=== PATIENT | female | born 1955 | race Caucasian/White ===

== ENCOUNTER 2018-12-23 16:22 | Emergency (ER) | payer OTHER, SELFPAY ==
[2018-12-23 16:27] VITALS: BP 144/84; PULSE 86; RESP 18; TEMP 36.9; O2SAT 97
--- NOTE | 2018-12-23 16:33 | DI.CT.S_ITS ---
PROCEDURE: CT HEAD/BRAIN WO CON INDICATIONS: fall TECHNIQUE: Noncontrast 4.5 mm thick angled axial sections acquired from the foramen magnum to the vertex, with coronal and sagittal reformats. For radiation dose reduction, the following was used: automated exposure control, adjustment of mA and/or kV according to patient size. COMPARISON: None. FINDINGS: Image quality: Excellent. CSF spaces: Basal cisterns are patent. No extra-axial fluid collections. Ventricles are normal in size and shape. Brain: No midline shift. No intracranial masses or hemorrhage. Shell-white matter interface is normal. Skull and face: Calvarium appears intact, without suspicious lesions or acute fracture. Mildly comminuted bilateral nasal bone fractures with overlying soft tissue edema. Small soft tissue laceration overlying the left zygomatic arch. Sinuses: Visualized sinuses and mastoids are clear. IMPRESSION: CT head without acute intracranial abnormalities. Mildly comminuted bilateral nasal bone fractures. No skull fractures. Dictated by: Compa Yarbrough M.D. on 12/23/2018 at 17:52 Approved by: Compa Yarbrough M.D. on 12/23/2018 at 17:53
--- NOTE | 2018-12-23 16:33 | DI.CT.S_ITS ---
PROCEDURE: CT CERVICAL SPINE WO CON INDICATIONS: fall TECHNIQUE: Noncontrast 3 mm thick sections acquired from the skull base to the T4 level. Sagittal and coronal reformats were then constructed. For radiation dose reduction, the following was used: automated exposure control, adjustment of mA and/or kV according to patient size. COMPARISON: None. FINDINGS: Image quality: Excellent. Bones: No fractures or dislocations. Multilevel cervical spondylosis. Visualized superior ribs are intact. Soft tissues: Prevertebral soft tissues are normal in thickness. No paravertebral hematomas. No apical pneumothoraces. IMPRESSION: Cervical spine without acute fracture or malalignment. Dictated by: Compa Yarbrough M.D. on 12/23/2018 at 17:57 Approved by: Compa Yarbrough M.D. on 12/23/2018 at 17:58
--- NOTE | 2018-12-23 16:33 | DI.CT.S_ITS ---
PROCEDURE: CT FACIAL BONES WO CON INDICATIONS: glf TECHNIQUE: Noncontrast 2.5 mm thick axial images acquired from the mandible through the frontal sinuses, with coronal and sagittal reformatting. For radiation dose reduction, the following was used: automated exposure control, adjustment of mA and/or kV according to patient size. COMPARISON: None. FINDINGS: Image quality: Excellent. Bones and teeth: Orbital tubbs are intact. Sinus tubbs show no fracture or deformity. Nasal septum intact. Mildly comminuted bilateral nasal bone fractures. There is overlying soft tissue edema. Visualized portions of the mandible demonstrate no fractures or subluxation. Zygomatic arches are intact. Pterygoid plates are intact. Visualized portions of the skull base and auditory canals are intact. Degenerative changes of the temporomandibular joints. Sinuses: Minimal right maxillary sinus mucosal thickening. Layering fluid in the sphenoid sinus. Remaining paranasal sinuses are aerated, without fluid levels, mucosal thickening, or mucoceles. Mastoid air cells are aerated. Soft tissues: Soft tissue swelling and laceration over the left zygomatic arch. Soft tissue swelling overlying nasal bone fractures. No enlarged lymph nodes. No soft tissue lacerations or debris. Vascular: Visualized vascular structures appear normal in the absence of contrast. Bony vascular foramina and canals are intact. IMPRESSION: Mildly comminuted bilateral nasal bone fractures. Dictated by: Compa Yarbrough M.D. on 12/23/2018 at 17:53 Approved by: Compa Yarbrough M.D. on 12/23/2018 at 17:56
--- NOTE | 2018-12-23 16:36 | DI.RAD.S_ITS ---
PROCEDURE: XR PELVIS 1-2V INDICATIONS: fall TECHNIQUE: Single view(s) of the pelvis acquired. COMPARISON: None. FINDINGS: Bones: No fractures or dislocations. No suspicious bony lesions. Soft tissues: Visualized bowel gas pattern is normal. No suspicious soft tissue calcifications. IMPRESSION: No acute fracture identified in this limited single view of the pelvis. If there are persistent clinical concern for pelvic or hip fracture, recommended dedicated radiographic series for further evaluation. Dictated by: Compa Yarbrough M.D. on 12/23/2018 at 19:25 Approved by: Compa Yarbrough M.D. on 12/23/2018 at 19:26
--- NOTE | 2018-12-23 16:37 | DI.RAD.S_ITS ---
PROCEDURE: XR CHEST 1V INDICATIONS: fall TECHNIQUE: One view of the chest was acquired. COMPARISON: None. FINDINGS: Surgical changes and devices: None. Lungs and pleura: Lungs are clear. No pleural effusions or pneumothorax. Mediastinum: Mediastinal contours appear normal. Heart size is normal. Bones and chest wall: No suspicious bony lesions. Overlying soft tissues appear unremarkable. IMPRESSION: No acute disease. Dictated by: Compa Yarbrough M.D. on 12/23/2018 at 19:24 Approved by: Compa Yarbrough M.D. on 12/23/2018 at 19:25
--- NOTE | 2018-12-23 17:05 | PC.NURSE ---
pt reports, lost balance and fell, occured approx 345pm.
--- NOTE | 2018-12-23 17:52 | PC.NURSE ---
facial ,nasal injuries, reports, back of neck pain, left chest pain. denies loc, denies nausea or vomiting at this time, denies visual changes, reports, front upper tooth edge is rough, but tooth all intact. no tounge injuries. denies etoh.
--- NOTE | 2018-12-23 17:54 | PC.NURSE ---
4x4 applied along with ice pack in place.
[2018-12-23 18:13] VITALS: BP 129/70; PULSE 79; RESP 16; O2SAT 97
--- NOTE | 2018-12-23 18:29 | PC.NURSE ---
pt ambulate to bathroom to void, denies dizziness.
[2018-12-23] MEDS: CYCLOBENZAPRINE 10 MG PREPACK 1 BOTTLE MISC (20:10)
[2018-12-23] MEDS: HYDROCODONE/ACET 5/325 PREPACK 1 BOTTLE MISC (20:10)
--- NOTE | 2018-12-23 20:14 | ED.HEATRA ---
HPI - Head Injury General Chief complaint: Head Injury Stated complaint: fall,hit face, mulitple wounds Time Seen by Provider: 12/23/18 18:00 Source: patient and family Mode of arrival: ambulatory Limitations: no limitations History of Present Illness HPI Narrative: 63-year-old female nonsmoker presents with her with a chief complaint of a mechanical fall with head and face injuries. She denies loss of consciousness and has had no nausea, vomiting or diarrhea. She does not take any blood thinners and denies use of alcohol. Patient was activated as a modified trauma given the mechanism and potential severity of injury. Patient was placed in a C-spine immobilization immediately upon being taken into the room. She is awake, alert and oriented and complains of pain in the left side of her face as well as her nose. she states that she was walking on the stairs in her backyard when she misjudged a step and in doing so stumbled forward and fell face 1st into some rocks. MD Complaint: head injury and head pain Onset (ago): minute(s) Mechanism of Injury: fall Place: home Loss of Consciousness: no Location of injury: frontal Severity: moderate Quality: stabbing and aching Radiation: none Other Injuries: laceration Associated symptoms: denies other symptoms Related Data Home Medications Medication Instructions Recorded Confirmed CA PANTOTHENATE/FOLIC ACID/VIT 1 tab PO QDAY #0 01/17/13 (MULTIVITAMIN) Calcium Carbonate/Vitamin D 1 tab PO BID #0 01/17/13 (#YOLANDA-D) Fish Oil 1,000 mg PO QDAY #0 01/17/13 Glucosamine Sulfate (GLUCOSAMINE-) 750 mg PO BID #0 01/17/13 Previous Rx's Medication Instructions Recorded estradiol-norethindrone acet 1 tab PO Q DAY #90 tab 11/21/18 [Activella] Allergies Allergy/AdvReac Type Severity Reaction Status Date / Time ibuprofen Allergy Unknown Unverified 11/29/17 12:17 [From DAYQUIL SINUS PRESSURE/PAIN] penicillin V [PENICILLIN V] Allergy Unknown Unverified 11/29/17 12:17 pseudoephedrine Allergy Unknown Unverified 11/29/17 12:17 [From DAYQUIL SINUS PRESSURE/PAIN] Review of Systems Constitutional Denies chills, Denies fever(s), Reports headache(s), Denies lethargy and Denies weakness Eyes Denies change in vision, Denies eye discharge, Denies irritation and Denies loss of vision ENT Ears, Nose, Mouth, and Throat: Denies change in voice, Reports facial pain, Reports headache(s), Reports nasal congestion, Denies neck pain and Denies sore throat Cardiovascular Denies chest pain, Denies irregular heart rhythm, Denies lightheadedness, Denies palpitations, Denies dyspnea, Denies dyspnea on exertion and Denies orthopnea Respiratory Denies cough, Denies dyspnea, Denies dyspnea on exertion and Denies wheezing Gastrointestinal Gastrointestinal: Denies abdominal pain, Denies change in bowel habits, Denies diarrhea, Denies nausea and Denies vomiting Genitourinary Denies hematuria, Denies flank pain, Denies urinary incontinence and Denies urinary urgency Musculoskeletal Denies neck pain Integumentary/Breasts Denies pruritus, Denies erythema, Denies rash and Reports wounds Neurologic Denies confusion, Reports headache(s), Denies loss of vision and Denies weakness Psychiatric Denies anxiety, Denies confusion, Denies depression, Denies homicidal ideation and Denies suicidal ideation Endocrine Denies palpitations Hematologic/Lymphatic Denies easy bruising Allergic/Immunologic Denies wheezing PFSH Surgical History Status post tonsillectomy and adenoidectomy Social History Smoking Status: Never smoker Social History Smoking Status: Never smoker Exam Narrative Exam Narrative: GENERAL: A 63-year-old female appears younger than stated age, obviously uncomfortable in C-spine. GCS is 15, alert and oriented x3 HEAD: 2 cm laceration mid forehead, deep with minimal bleeding, very small laceration on the bridge of nose bleeding. Large complex deep, gaping wound over left zygoma with minimal tissue loss and dirty wound. Minimal bleeding. EYES: Pupils equal round and reactive. Extraocular motions intact. No scleral icterus. No injection or drainage. ENT: Nose without bleeding, purulent drainage or septal hematoma. Patient cannot breathe through left knee air and there is apparently a new septal deviation causing this. She has tenderness, swelling and deformity of the bridge of her nose. small laceration on the bridge of the nose, 1/4 cm Throat without erythema, tonsillar hypertrophy or exudate. Uvula midline. Airway patent. NECK: Trachea midline. No JVD or lymphadenopathy. Supple, nontender, no meningeal signs. CARDIOVASCULAR: Regular rate and rhythm without murmurs, gallops, or rubs. RESPIRATORY: Clear to auscultation. Breath sounds equal bilaterally. No wheezes, rales, or rhonchi. GASTROINTESTINAL: Abdomen soft, non-tender, nondistended. No hepato-splenomegaly, or palpable masses. No guarding. EXTREMITIES: No clubbing, cyanosis, or edema. No joint tenderness, effusion, or edema noted. BACK: Nontender without deformity or crepitance. No flank tenderness. NEURO: AOx3. SKIN: No rash or erythema. Initial Vital Signs Initial Vital Signs: Vital Signs Temperature 98.4 F 12/23/18 16:27 Pulse Rate 86 12/23/18 16:27 Respiratory Rate 18 12/23/18 16:27 Blood Pressure 144/84 H 12/23/18 16:27 Pulse Oximetry 97 12/23/18 16:27 Const General: cooperative and well developed Nutritional Appearance: well nourished Orientation: alert, awake, oriented x3 and not confused [facility] Head: normocephalic and atraumatic Ears: external ears normal and TM's normal bilaterally Nose: external nose normal and No nasal discharge Face and sinus: sinuses nontender, face symmetric, no sinus tenderness and No dry mucous membranes Mouth: oral mucosae normal and moist mucous membranes Teeth and gingiva: dentition normal Throat: tonsils normal and uvula midline Eyes General: appearance normal, both eyes and all related structures Eyelids: eyelids normal Conjunctivae: conjunctivae normal Sclera: sclerae normal Pupils: PERRL EOM: EOM intact bilaterally Neck Neck: normal visual inspection, trachea midline, No lymphadenopathy, No midline deformity and No JVD Lymphatic: No lymphedema Chest Chest: normal inspection of the chest Resp Effort & Inspection: normal respiratory effort, able to speak in complete sentences, no respiratory distress and no use of accessory muscles Auscultation: clear to auscultation bilaterally, no rales, no rhonchi and no wheezes Cardio Rate: regular rate Rhythm: regular rhythm Heart Sounds: no click, no gallops, no murmurs and no rubs Pulses: normal peripheral pulses GI Inspection: non-distended Palpation: soft, no hepatosplenomegaly, No guarding, No pulsatile mass and No tender Auscultation: normal bowel sounds Back/Spine/Pelvis Back: No CVA tenderness Cervical Spine: cervical ROM normal and No pain with cervical ROM Thoracic/Lumbar Spine: thoracic and lumbar spine normal to inspection Skin General: no rashes or lesions noted, No jaundice and No petechiae Neuro General: alert, oriented x3, gait normal and no focal motor deficits Speech: speech normal Extrem General: full ROM, no clubbing, cyanosis or edema, no pedal edema and no calf tenderness Psych Appearance: well kempt Mental Status: mental status grossly normal Attitude: cooperative Thought Content: normal and suicidality Judgment: judgment good Procedures Laceration Repair Laceration 1: Site: face Size (cm): 0.25 Description: linear Depth: simple, single layer Local Anesthetic: lidocaine 1% and with bicarb Amount of anesthesia used (mL): 2 Pre-repair: wound explored Skin layer closed with: nylon Size (cm): 6-0 Number of sutures: 1 Technique: simple, interrupted Course Orders Ordered: ED Orders 12/23/18 16:33 CT cervical spine wo con Stat CT facial bones wo con Stat CT head/brain wo con Stat 12/23/18 16:36 XR pelvis 1-2V Stat 12/23/18 16:37 XR chest 1V Stat Discontinued Medications Hydrocodone Bitart/Acetaminophen (Vicodin Prepack) 1 bottle MISC SEEINSTR ONE Stop: 12/23/18 19:56 Last Admin: 12/23/18 20:10 Dose: 1 bottle Cyclobenzaprine HCl (Flexeril 10 Mg Prepack) 1 bottle MISC SEEINSTR ONE Stop: 12/23/18 19:56 Last Admin: 12/23/18 20:10 Dose: 1 bottle Consultations Consultation #1: Early call to ear nose and throat given inability to breathe through left knee air as well as complexity of left-sided facial laceration. Dr. Silva was extremely helpful in gave detailed instructions regarding wound care including careful cleaning, use of Betadine with overlying 4x4s and sterile saline and a Kerlix wrap. He requests we do not repair the wounds and send the patient to the ENT office early tomorrow morning where they can evaluate the nasal injury as well as to perform facial repairs. Vital Signs - 8 hr 12/23/18 16:27 12/23/18 18:13 Temperature 98.4 F Pulse Rate 86 79 Respiratory Rate 18 16 Blood Pressure 144/84 H Blood Pressure [Left Arm] 129/70 Pulse Oximetry 97 97 MDM - Head Injury Lab Data Urine Dip Bedside Urine Glucose Negative Bedside Urine Bilirubin - Negative Bedside Urine Ketone +/- 5 Urine Specific [place] 1.015 Bedside Urine Occult Blood - Negative Bedside Urine pH 7.0 Bedside Urine Protein - Negative Bedside Urine Urobilinogen - Negative Bedside Urine Nitrite - Negative Bedside Urine Leukocytes - Negative Esterase Imaging Data CT scan - head: Radiologist's impression: [address] [address] [address] Scan Report Signed Patient: Suzan Serrano [facility]#: [id number] : 1955cct:[id number] Age/Sex: 63 / FDate of Service: 12/23/18 Loc: ED Accession Number: [id number] Procedure: CT head/brain wo con Ordering Provider: Digna Goodwin- PROCEDURE: CT HEAD/BRAIN WO CON INDICATIONS: fall TECHNIQUE: Noncontrast 4.5 mm thick angled axial sections acquired from the foramen magnum to the vertex, with coronal and sagittal reformats. For radiation dose reduction, the following was used: automated exposure control, adjustment of mA and/or kV according to patient size. COMPARISON: None. FINDINGS: Image quality: Excellent. CSF spaces: Basal cisterns are patent. No extra-axial fluid collections. Ventricles are normal in size and shape. Brain: No midline shift. No intracranial masses or hemorrhage. Shell-white matter interface is normal. Skull and face: Calvarium appears intact, without suspicious lesions or acute fracture. Mildly comminuted bilateral nasal bone fractures with overlying soft tissue edema. Small soft tissue laceration overlying the left zygomatic arch. Sinuses: Visualized sinuses and mastoids are clear. IMPRESSION: CT head without acute intracranial abnormalities. Mildly comminuted bilateral nasal bone fractures. No skull fractures. Dictated by: Compa Yarbrough M.D. on 12/23/2018 at 17:52 Approved by: Compa Yarbrough M.D. on 12/23/2018 at 17:[address]: Radiologist's impression: [address] [address] [address] Scan Report Signed Patient: Suzan Serrano [facility]#: [id number] : 6Acct:[id number] Age/Sex: 63 / FDate of Service: 12/23/18 Loc: ED Accession Number: [id number] Procedure: CT facial bones wo con Ordering Provider: Digna Goodwin PROCEDURE: CT FACIAL BONES WO CON INDICATIONS: glf TECHNIQUE: Noncontrast 2.5 mm thick axial images acquired from the mandible through the frontal sinuses, with coronal and sagittal reformatting. For radiation dose reduction, the following was used: automated exposure control, adjustment of mA and/or kV according to patient size. COMPARISON: None. FINDINGS: Image quality: Excellent. Bones and teeth: Orbital tubbs are intact. Sinus tubbs show no fracture or deformity. Nasal septum intact. Mildly comminuted bilateral nasal bone fractures. There is overlying soft tissue edema. Visualized portions of the mandible demonstrate no fractures or subluxation. Zygomatic arches are intact. Pterygoid plates are intact. Visualized portions of the skull base and auditory canals are intact. Degenerative changes of the temporomandibular joints. Sinuses: Minimal right maxillary sinus mucosal thickening. Layering fluid in the sphenoid sinus. Remaining paranasal sinuses are aerated, without fluid levels, mucosal thickening, or mucoceles. Mastoid air cells are aerated. Soft tissues: Soft tissue swelling and laceration over the left zygomatic arch. Soft tissue swelling overlying nasal bone fractures. No enlarged lymph nodes. No soft tissue lacerations or debris. Vascular: Visualized vascular structures appear normal in the absence of contrast. Bony vascular foramina and canals are intact. IMPRESSION: Mildly comminuted bilateral nasal bone fractures. Dictated by: Compa Yarbrough M.D. on 12/23/2018 at 17:53 CT Cspine: Radiologist's impression: [place] [address] CT Scan Report Signed Patient: Suzan Serrano [facility]#: [id number] : 6Acct:[id number] Age/Sex: 63 / FDate of Service: 12/23/18 Loc: ED Accession Number: [id number] Procedure: CT cervical spine wo con Ordering Provider: Digna Goodwin PROCEDURE: CT CERVICAL SPINE WO CON INDICATIONS: fall TECHNIQUE: Noncontrast 3 mm thick sections acquired from the skull base to the T4 level. Sagittal and coronal reformats were then constructed. For radiation dose reduction, the following was used: automated exposure control, adjustment of mA and/or kV according to patient size. COMPARISON: None. FINDINGS: Image quality: Excellent. Bones: No fractures or dislocations. Multilevel cervical spondylosis. Visualized superior ribs are intact. Soft tissues: Prevertebral soft tissues are normal in thickness. No paravertebral hematomas. No apical pneumothoraces. IMPRESSION: Cervical spine without acute fracture or malalignment. Dictated by: Compa Yarbrough M.D. on 12/23/2018 at 17:57 Approved by: Compa Yarbrough M.D. on 12/23/2018 at 17:58 Chest x-ray: Radiologist's impression: [place] [address] XRay Report Signed Patient: Suzan Serrano [facility]#: [id number] : [id number]:[id number] Age/Sex: 63 / FDate of Service: 12/23/18 Loc: ED Accession Number: [id number] Procedure: XR chest 1V Ordering Provider: Digna Goodwin PROCEDURE: XR CHEST 1V INDICATIONS: fall TECHNIQUE: One view of the chest was acquired. COMPARISON: None. FINDINGS: Surgical changes and devices: None. Lungs and pleura: Lungs are clear. No pleural effusions or pneumothorax. Mediastinum: Mediastinal contours appear normal. Heart size is normal. Bones and chest wall: No suspicious bony lesions. Overlying soft tissues appear unremarkable. IMPRESSION: No acute disease. Dictated by: Compa Yarbrough M.D. on 12/23/2018 at 19:24 Approved by: Compa Yarbrough M.D. on 12/23/2018 at 19:25 Abdominal x-ray: Radiologist's impression: [address] [address] XRay Report Signed Patient: Suzan Serrano [facility]#: [id number] : [id number]:[id number] Age/Sex: 63 / FDate of Service: 12/23/18 Loc: ED Accession Number: [id number] Procedure: XR pelvis 1-2V Ordering Provider: Dinwiddie,Digna FLUME MAKER-BC PROCEDURE: XR PELVIS 1-2V INDICATIONS: fall TECHNIQUE: Single view(s) of the pelvis acquired. COMPARISON: None. FINDINGS: Bones: No fractures or dislocations. No suspicious bony lesions. Soft tissues: Visualized bowel gas pattern is normal. No suspicious soft tissue calcifications. IMPRESSION: No acute fracture identified in this limited single view of the pelvis. If there are persistent clinical concern for pelvic or hip fracture, recommended dedicated radiographic series for further evaluation. Dictated by: Compa Yarbrough M.D. on 12/23/2018 at 19:25 Approved by: Compa Yarbrough M.D. on 12/23/2018 at 19:26 [facility] Narrative Medical decision making narrative: A 63-year-old female with mechanical fall extensive facial lacerations and nasal bone fracture. Newly unable to breathe through left knee air as result of a traumatic septal deviation, no hematoma noted. Additionally complex left facial laceration is best served to be repaired by ENT. They will see her tomorrow morning. Extensive return precautions given to patient and . They understand the plan and are in full agreement as is verbalized by their understanding. ENT requested wound be cleaned, prepped but left unrepaired so they may complete the job tomorrow. I did put 1 small stitch in the bridge of the nose because it continued to trickle bleed. Discharge Plan Departure Patient Disposition: Home Clinical Impression: Closed head injury Qualifiers: Encounter type: initial encounter Qualified Code(s): S09.90XA - Unspecified injury of head, initial encounter Facial laceration Qualifiers: Encounter type: initial encounter Qualified Code(s): S01.81XA - Laceration without foreign body of other part of head, initial encounter Closed fracture nasal bone Qualifiers: Encounter type: initial encounter Qualified Code(s): S02.2XXA - Fracture of nasal bones, initial encounter for closed fracture Discharge Date/Time: 12/23/18 20:23 Instructions: DI for Laceration Repair, DI for Closed Head Injury Activity Restrictions/Additional Instructions: Please leave the dressing in place unless it becomes wet or soiled in which case you should return to the emergency department Please proceed to the [facility] tomorrow for your appointment at 11. I have been speaking with Dr. Bradford Silva but Dr. brink is in the office and you will see either one, they are expecting you. The office is a half block north [facility] Emergency at [facility] [address] [place] [address] in [place] Please return to the emergency department for any worsening or persistent symptoms Prescriptions: No Action Fish Oil 1,000 mg PO QDAY Qty: 0 RF: 0 CA PANTOTHENATE/FOLIC ACID/VIT (MULTIVITAMIN) 1 tab PO QDAY Qty: 0 RF: 0 Calcium Carbonate/Vitamin D (#YOLANDA-D) 1 tab PO BID Qty: 0 RF: 0 Glucosamine Sulfate (GLUCOSAMINE-) 750 mg PO BID Qty: 0 RF: 0 estradiol-norethindrone acet [Activella] 1-0.5 mg tablet 1 tab PO Q DAY Qty: 90 RF: 3 Referrals: Bradford Silva MD [Physician] -
[2018-12-23 20:20] VITALS: BP 122/72; PULSE 77; RESP 14; O2SAT 99
--- NOTE | 2018-12-23 20:23 | ED_ITS ---
HPI - Head Injury General Chief complaint: Head Injury Stated complaint: fall,hit face, mulitple wounds Time Seen by Provider: 12/23/18 18:00 Source: patient and family Mode of arrival: ambulatory Limitations: no limitations History of Present Illness HPI Narrative: 63-year-old female nonsmoker presents with her with a chief complaint of a mechanical fall with head and face injuries. She denies loss of consciousness and has had no nausea, vomiting or diarrhea. She does not take any blood thinners and denies use of alcohol. Patient was activated as a modified trauma given the mechanism and potential severity of injury. Patient was placed in a C-spine immobilization immediately upon being taken into the room. She is awake, alert and oriented and complains of pain in the left side of her face as well as her nose. she states that she was walking on the stairs in her backyard when she misjudged a step and in doing so stumbled forward and fell face 1st into some rocks. MD Complaint: head injury and head pain Onset (ago): minute(s) Mechanism of Injury: fall Place: home Loss of Consciousness: no Location of injury: frontal Severity: moderate Quality: stabbing and aching Radiation: none Other Injuries: laceration Associated symptoms: denies other symptoms Related Data Home Medications Medication Instructions Recorded Confirmed CA PANTOTHENATE/FOLIC ACID/VIT 1 tab PO QDAY #0 01/17/13 (MULTIVITAMIN) Calcium Carbonate/Vitamin D 1 tab PO BID #0 01/17/13 (#YOLANDA-D) Fish Oil 1,000 mg PO QDAY #0 01/17/13 Glucosamine Sulfate (GLUCOSAMINE-) 750 mg PO BID #0 01/17/13 Previous Rx's Medication Instructions Recorded estradiol-norethindrone acet 1 tab PO Q DAY #90 tab 11/21/18 [Activella] Allergies Allergy/AdvReac Type Severity Reaction Status Date / Time ibuprofen Allergy Unknown Unverified 11/29/17 12:17 [From DAYQUIL SINUS PRESSURE/PAIN] penicillin V [PENICILLIN V] Allergy Unknown Unverified 11/29/17 12:17 pseudoephedrine Allergy Unknown Unverified 11/29/17 12:17 [From DAYQUIL SINUS PRESSURE/PAIN] Review of Systems Constitutional Denies chills, Denies fever(s), Reports headache(s), Denies lethargy and Denies weakness Eyes Denies change in vision, Denies eye discharge, Denies irritation and Denies loss of vision ENT Ears, Nose, Mouth, and Throat: Denies change in voice, Reports facial pain, Reports headache(s), Reports nasal congestion, Denies neck pain and Denies sore throat Cardiovascular Denies chest pain, Denies irregular heart rhythm, Denies lightheadedness, Denies palpitations, Denies dyspnea, Denies dyspnea on exertion and Denies orthopnea Respiratory Denies cough, Denies dyspnea, Denies dyspnea on exertion and Denies wheezing Gastrointestinal Gastrointestinal: Denies abdominal pain, Denies change in bowel habits, Denies diarrhea, Denies nausea and Denies vomiting Genitourinary Denies hematuria, Denies flank pain, Denies urinary incontinence and Denies urinary urgency Musculoskeletal Denies neck pain Integumentary/Breasts Denies pruritus, Denies erythema, Denies rash and Reports wounds Neurologic Denies confusion, Reports headache(s), Denies loss of vision and Denies weakness Psychiatric Denies anxiety, Denies confusion, Denies depression, Denies homicidal ideation and Denies suicidal ideation Endocrine Denies palpitations Hematologic/Lymphatic Denies easy bruising Allergic/Immunologic Denies wheezing PFSH Surgical History Status post tonsillectomy and adenoidectomy Social History Smoking Status: Never smoker Social History Smoking Status: Never smoker Exam Narrative Exam Narrative: GENERAL: A 63-year-old female appears younger than stated age, obviously uncomfortable in C-spine. GCS is 15, alert and oriented x3 HEAD: 2 cm laceration mid forehead, deep with minimal bleeding, very small laceration on the bridge of nose bleeding. Large complex deep, gaping wound over left zygoma with minimal tissue loss and dirty wound. Minimal bleeding. EYES: Pupils equal round and reactive. Extraocular motions intact. No scleral icterus. No injection or drainage. ENT: Nose without bleeding, purulent drainage or septal hematoma. Patient cannot breathe through left knee air and there is apparently a new septal deviation causing this. She has tenderness, swelling and deformity of the bridge of her nose. small laceration on the bridge of the nose, 1/4 cm Throat without erythema, tonsillar hypertrophy or exudate. Uvula midline. Airway patent. NECK: Trachea midline. No JVD or lymphadenopathy. Supple, nontender, no meningeal signs. CARDIOVASCULAR: Regular rate and rhythm without murmurs, gallops, or rubs. RESPIRATORY: Clear to auscultation. Breath sounds equal bilaterally. No wheezes, rales, or rhonchi. GASTROINTESTINAL: Abdomen soft, non-tender, nondistended. No hepato- splenomegaly, or palpable masses. No guarding. EXTREMITIES: No clubbing, cyanosis, or edema. No joint tenderness, effusion, or edema noted. BACK: Nontender without deformity or crepitance. No flank tenderness. NEURO: AOx3. SKIN: No rash or erythema. Initial Vital Signs Initial Vital Signs: Vital Signs Temperature 98.4 F 12/23/18 16:27 Pulse Rate 86 12/23/18 16:27 Respiratory Rate 18 12/23/18 16:27 Blood Pressure 144/84 H 12/23/18 16:27 Pulse Oximetry 97 12/23/18 16:27 Const General: cooperative and well developed Nutritional Appearance: well nourished Orientation: alert, awake, oriented x3 and not confused [facility] Head: normocephalic and atraumatic Ears: external ears normal and TM's normal bilaterally Nose: external nose normal and No nasal discharge Face and sinus: sinuses nontender, face symmetric, no sinus tenderness and No dry mucous membranes Mouth: oral mucosae normal and moist mucous membranes Teeth and gingiva: dentition normal Throat: tonsils normal and uvula midline Eyes General: appearance normal, both eyes and all related structures Eyelids: eyelids normal Conjunctivae: conjunctivae normal Sclera: sclerae normal Pupils: PERRL EOM: EOM intact bilaterally Neck Neck: normal visual inspection, trachea midline, No lymphadenopathy, No midline deformity and No JVD Lymphatic: No lymphedema Chest Chest: normal inspection of the chest Resp Effort & Inspection: normal respiratory effort, able to speak in complete sentences, no respiratory distress and no use of accessory muscles Auscultation: clear to auscultation bilaterally, no rales, no rhonchi and no wheezes Cardio Rate: regular rate Rhythm: regular rhythm Heart Sounds: no click, no gallops, no murmurs and no rubs Pulses: normal peripheral pulses GI Inspection: non-distended Palpation: soft, no hepatosplenomegaly, No guarding, No pulsatile mass and No tender Auscultation: normal bowel sounds Back/Spine/Pelvis Back: No CVA tenderness Cervical Spine: cervical ROM normal and No pain with cervical ROM Thoracic/Lumbar Spine: thoracic and lumbar spine normal to inspection Skin General: no rashes or lesions noted, No jaundice and No petechiae Neuro General: alert, oriented x3, gait normal and no focal motor deficits Speech: speech normal Extrem General: full ROM, no clubbing, cyanosis or edema, no pedal edema and no calf tenderness Psych Appearance: well kempt Mental Status: mental status grossly normal Attitude: cooperative Thought Content: normal and suicidality Judgment: judgment good Procedures Laceration Repair Laceration 1: Site: face Size (cm): 0.25 Description: linear Depth: simple, single layer Local Anesthetic: lidocaine 1% and with bicarb Amount of anesthesia used (mL): 2 Pre-repair: wound explored Skin layer closed with: nylon Size (cm): 6-0 Number of sutures: 1 Technique: simple, interrupted Course Orders Ordered: ED Orders 12/23/18 16:33 CT cervical spine wo con Stat CT facial bones wo con Stat CT head/brain wo con Stat 12/23/18 16:36 XR pelvis 1-2V Stat 12/23/18 16:37 XR chest 1V Stat Discontinued Medications Hydrocodone Bitart/Acetaminophen (Vicodin Prepack) 1 bottle MISC SEEINSTR ONE Stop: 12/23/18 19:56 Last Admin: 12/23/18 20:10 Dose: 1 bottle Cyclobenzaprine HCl (Flexeril 10 Mg Prepack) 1 bottle MISC SEEINSTR ONE Stop: 12/23/18 19:56 Last Admin: 12/23/18 20:10 Dose: 1 bottle Consultations Consultation #1: Early call to ear nose and throat given inability to breathe through left knee air as well as complexity of left-sided facial laceration. Dr. Silva was extremely helpful in gave detailed instructions regarding wound care including careful cleaning, use of Betadine with overlying 4x4s and sterile saline and a Kerlix wrap. He requests we do not repair the wounds and send the patient to the ENT office early tomorrow morning where they can evaluate the nasal injury as well as to perform facial repairs. Vital Signs - 8 hr 12/23/18 16:27 12/23/18 18:13 Temperature 98.4 F Pulse Rate 86 79 Respiratory Rate 18 16 Blood Pressure 144/84 H Blood Pressure [Left Arm] 129/70 Pulse Oximetry 97 97 MDM - Head Injury Lab Data Urine Dip Bedside Urine Glucose Negative Bedside Urine Bilirubin - Negative Bedside Urine Ketone +/- 5 Urine Specific [place] 1.015 Bedside Urine Occult Blood - Negative Bedside Urine pH 7.0 Bedside Urine Protein - Negative Bedside Urine Urobilinogen - Negative Bedside Urine Nitrite - Negative Bedside Urine Leukocytes - Negative Esterase Imaging Data CT scan - head: Radiologist's impression: [address] [address] [address] Scan Report Signed Patient: Suzan Serrano [facility]#: [id number] : 1955cct:[id number] Age/Sex: 63 / FDate of Service: 12/23/18 Loc: ED Accession Number: [id number] Procedure: CT head/brain wo con Ordering Provider: Digna Goodwin- PROCEDURE: CT HEAD/BRAIN WO CON INDICATIONS: fall TECHNIQUE: Noncontrast 4.5 mm thick angled axial sections acquired from the foramen magnum to the vertex, with coronal and sagittal reformats. For radiation dose reduction, the following was used: automated exposure control, adjustment of mA and/or kV according to patient size. COMPARISON: None. FINDINGS: Image quality: Excellent. CSF spaces: Basal cisterns are patent. No extra-axial fluid collections. Ventricles are normal in size and shape. Brain: No midline shift. No intracranial masses or hemorrhage. Shell-white matter interface is normal. Skull and face: Calvarium appears intact, without suspicious lesions or acute fracture. Mildly comminuted bilateral nasal bone fractures with overlying soft tissue edema. Small soft tissue laceration overlying the left zygomatic arch. Sinuses: Visualized sinuses and mastoids are clear. IMPRESSION: CT head without acute intracranial abnormalities. Mildly comminuted bilateral nasal bone fractures. No skull fractures. Dictated by: Compa Yarbrough M.D. on 12/23/2018 at 17:52 Approved by: Compa Yarbrough M.D. on 12/23/2018 at 17:[address]: Radiologist's impression: [address] [address] [address] Scan Report Signed Patient: Suzan Serrano [facility]#: [id number] : 6Acct:[id number] Age/Sex: 63 / FDate of Service: 12/23/18 Loc: ED Accession Number: [id number] Procedure: CT facial bones wo con Ordering Provider: Digna Goodwin PROCEDURE: CT FACIAL BONES WO CON INDICATIONS: glf TECHNIQUE: Noncontrast 2.5 mm thick axial images acquired from the mandible through the frontal sinuses, with coronal and sagittal reformatting. For radiation dose reduction, the following was used: automated exposure control, adjustment of mA and/or kV according to patient size. COMPARISON: None. FINDINGS: Image quality: Excellent. Bones and teeth: Orbital tubbs are intact. Sinus tubbs show no fracture or deformity. Nasal septum intact. Mildly comminuted bilateral nasal bone fractures. There is overlying soft tissue edema. Visualized portions of the mandible demonstrate no fractures or subluxation. Zygomatic arches are intact. Pterygoid plates are intact. Visualized portions of the skull base and auditory canals are intact. Degenerative changes of the temporomandibular joints. Sinuses: Minimal right maxillary sinus mucosal thickening. Layering fluid in the sphenoid sinus. Remaining paranasal sinuses are aerated, without fluid levels, mucosal thickening, or mucoceles. Mastoid air cells are aerated. Soft tissues: Soft tissue swelling and laceration over the left zygomatic arch. Soft tissue swelling overlying nasal bone fractures. No enlarged lymph nodes. No soft tissue lacerations or debris. Vascular: Visualized vascular structures appear normal in the absence of contrast. Bony vascular foramina and canals are intact. IMPRESSION: Mildly comminuted bilateral nasal bone fractures. Dictated by: Compa Yarbrough M.D. on 12/23/2018 at 17:53 CT Cspine: Radiologist's impression: [place] [address] CT Scan Report Signed Patient: Suzan Serrano [facility]#: [id number] : 6Acct:[id number] Age/Sex: 63 / FDate of Service: 12/23/18 Loc: ED Accession Number: [id number] Procedure: CT cervical spine wo con Ordering Provider: Digna Goodwin PROCEDURE: CT CERVICAL SPINE WO CON INDICATIONS: fall TECHNIQUE: Noncontrast 3 mm thick sections acquired from the skull base to the T4 level. Sagittal and coronal reformats were then constructed. For radiation dose reduction, the following was used: automated exposure control, adjustment of mA and/or kV according to patient size. COMPARISON: None. FINDINGS: Image quality: Excellent. Bones: No fractures or dislocations. Multilevel cervical spondylosis. Visualized superior ribs are intact. Soft tissues: Prevertebral soft tissues are normal in thickness. No paravertebral hematomas. No apical pneumothoraces. IMPRESSION: Cervical spine without acute fracture or malalignment. Dictated by: Compa Yarbrough M.D. on 12/23/2018 at 17:57 Approved by: Compa Yarbrough M.D. on 12/23/2018 at 17:58 Chest x-ray: Radiologist's impression: [place] [address] XRay Report Signed Patient: Suzan Serrano [facility]#: [id number] : [id number]:[id number] Age/Sex: 63 / FDate of Service: 12/23/18 Loc: ED Accession Number: [id number] Procedure: XR chest 1V Ordering Provider: Digna Goodwin PROCEDURE: XR CHEST 1V INDICATIONS: fall TECHNIQUE: One view of the chest was acquired. COMPARISON: None. FINDINGS: Surgical changes and devices: None. Lungs and pleura: Lungs are clear. No pleural effusions or pneumothorax. Mediastinum: Mediastinal contours appear normal. Heart size is normal. Bones and chest wall: No suspicious bony lesions. Overlying soft tissues appear unremarkable. IMPRESSION: No acute disease. Dictated by: Compa Yarbrough M.D. on 12/23/2018 at 19:24 Approved by: Compa Yarbrough M.D. on 12/23/2018 at 19:25 Abdominal x-ray: Radiologist's impression: [address] [address] XRay Report Signed Patient: Suzan Serrano [facility]#: [id number] : [id number]:[id number] Age/Sex: 63 / FDate of Service: 12/23/18 Loc: ED Accession Number: [id number] Procedure: XR pelvis 1-2V Ordering Provider: Christa,Digna [employer] PROCEDURE: XR PELVIS 1-2V INDICATIONS: fall TECHNIQUE: Single view(s) of the pelvis acquired. COMPARISON: None. FINDINGS: Bones: No fractures or dislocations. No suspicious bony lesions. Soft tissues: Visualized bowel gas pattern is normal. No suspicious soft tissue calcifications. IMPRESSION: No acute fracture identified in this limited single view of the pelvis. If there are persistent clinical concern for pelvic or hip fracture, recommended dedicated radiographic series for further evaluation. Dictated by: Compa Yarbrough M.D. on 12/23/2018 at 19:25 Approved by: Compa Yarbrough M.D. on 12/23/2018 at 19:26 [facility] Narrative Medical decision making narrative: A 63-year-old female with mechanical fall extensive facial lacerations and nasal bone fracture. Newly unable to breathe through left knee air as result of a traumatic septal deviation, no hematoma noted. Additionally complex left facial laceration is best served to be repaired by ENT. They will see her tomorrow morning. Extensive return precautions given to patient and . They understand the plan and are in full agreement as is verbalized by their understanding. ENT requested wound be cleaned, prepped but left unrepaired so they may complete the job tomorrow. I did put 1 small stitch in the bridge of the nose because it continued to trickle bleed. Discharge Plan Departure Patient Disposition: Home Clinical Impression: Closed head injury Qualifiers: Encounter type: initial encounter Qualified Code(s): S09.90XA - Unspecified injury of head, initial encounter Facial laceration Qualifiers: Encounter type: initial encounter Qualified Code(s): S01.81XA - Laceration without foreign body of other part of head, initial encounter Closed fracture nasal bone Qualifiers: Encounter type: initial encounter Qualified Code(s): S02.2XXA - Fracture of nasal bones, initial encounter for closed fracture Discharge Date/Time: 12/23/18 20:23 Instructions: DI for Laceration Repair, DI for Closed Head Injury Activity Restrictions/Additional Instructions: Please leave the dressing in place unless it becomes wet or soiled in which case you should return to the emergency department Please proceed to the [facility] ENT tomorrow for your appointment at 11. I have been speaking with Dr. Bradford Silva but Dr. brink is in the office and you will see either one, they are expecting you. The office is a half block north [facility] at [facility] [address] [place] [address] in [place] Please return to the emergency department for any worsening or persistent symptoms Prescriptions: No Action Fish Oil 1,000 mg PO QDAY Qty: 0 RF: 0 CA PANTOTHENATE/FOLIC ACID/VIT (MULTIVITAMIN) 1 tab PO QDAY Qty: 0 RF: 0 Calcium Carbonate/Vitamin D (#YOLANDA-D) 1 tab PO BID Qty: 0 RF: 0 Glucosamine Sulfate (GLUCOSAMINE-) 750 mg PO BID Qty: 0 RF: 0 estradiol-norethindrone acet [Activella] 1-0.5 mg tablet 1 tab PO Q DAY Qty: 90 RF: 3 Referrals: Bradford Silva MD [Physician] -
== END 2018-12-23 20:23 | disposition home or self-care (01) ==
PROVIDERS: Emergency Provider Emergency Medicine
DX: S09.90XA Unspecified injury of head, initial encounter (principal); S01.81XA Laceration without foreign body of other part of head, initial encounter; S02.2XXA Fracture of nasal bones, initial encounter for closed fracture; W19.XXXA Unspecified fall, initial encounter
CPT/HCPCS: 12011; 70450; 70486; 71045; 72125; 72170; 81003; 99283; 99284

== ENCOUNTER → 2019-06-21 12:11 | Outpatient (CLI) | payer OTHER, SELFPAY ==
--- NOTE | 2019-06-21 | DI.MG.S_ITS ---
BILATERAL DIGITAL SCREENING MAMMOGRAM 3D/2D WITH CAD: 06/21/2019 CLINICAL: Routine screening. Comparison is made to exams dated: 01/10/2017 mammogram, 07/30/2015 mammogram, 07/26/2012 mammogram, and 06/20/2011 mammogram - [facility]. The tissue of both breasts is extremely dense, which lowers the sensitivity of mammography. Current study was also evaluated with a Computer Aided Detection (CAD) system. There is an oval asymmetry in the right breast posterior depth medial region seen on the craniocaudal view only. No other significant masses, calcifications, or other findings are seen in either breast. IMPRESSION: INCOMPLETE: NEEDS ADDITIONAL IMAGING EVALUATION The oval asymmetry in the right breast is indeterminate. Additional views with possible ultrasound are recommended. This exam was interpreted at Station ID: [id number]. NOTE: For mammograms, a report in lay terms will be sent to the patient. Approximately 15% of breast malignancies will not be visualized mammographically. In the management of a palpable breast mass, a negative mammogram must not discourage biopsy of a clinically suspicious lesion. Electronically Signed By: Mina Sofia M.D. ecl/:06/23/2019 21:27:08 copy to: Jose Leyva letter sent: Additional Imaging Needed ACR BI-RADS Category 0: Incomplete [id number]
== END ==
PROVIDERS: PCP Internal Medicine; Visit Provider Internal Medicine
DX: Z12.31 Encounter for screening mammogram for malignant neoplasm of breast (principal)
CPT/HCPCS: 77063; 77067

== ENCOUNTER → 2019-07-15 08:42 | Outpatient (CLI) | payer OTHER, SELFPAY ==
--- NOTE | 2019-07-15 | DI.US.S_ITS ---
LIMITED ULTRASOUND OF RIGHT BREAST: 07/15/2019 CLINICAL: Patient returns today to evaluate an architectural distortion in the right breast. Comparison is made to exams dated: 07/15/2019 mammogram, 06/21/2019 mammogram, 01/10/2017 mammogram, and 07/30/2015 mammogram - [facility]. Real-time ultrasound of the right breast 2 o'clock region was performed. Shell scale images of the real-time examination were reviewed. No significant abnormalities were seen sonographically in the right breast. Specifically, no finding to correspond to the patient's screening abnormality which resolved with additional mammographic views. IMPRESSION: NEGATIVE There is no sonographic correlate to the patient's resolved screening mammogram abnormality and no evidence of malignancy. Return to annual mammogram screening schedule is recommended. Findings and recommendations were conveyed to the patient at time of exam. This exam was interpreted at Station ID: [id number]. Electronically Signed By: Palak mesesr/:07/15/2019 09:43:42 copy to: Jose Leyva letter sent: Normal Exam Ultrasound BI-RADS: 1 Negative
--- NOTE | 2019-07-15 | DI.MG.S_ITS ---
UNILATERAL RIGHT DIGITAL DIAGNOSTIC MAMMOGRAM 3D/2D WITH ADDITIONAL VIEWS: 07/15/2019 CLINICAL: Additional evaluation requested from prior study. Comparison is made to exams dated: 06/21/2019 mammogram, 01/10/2017 mammogram, and 07/30/2015 mammogram - [facility]. The tissue of right breast is heterogeneously dense. This may lower the sensitivity of mammography. With focal spot compression, and additional views, the 0.3 mm oval asymmetry seen on screening mammography resolves. No other significant masses or calcifications are seen in the breast. IMPRESSION: INCOMPLETE: NEEDS ADDITIONAL IMAGING EVALUATION Resolution of screening mammography abnormality with additional views. Ultrasound evaluation to confirm resolution is recommended and was performed immediately following this exam. This exam was interpreted at Station ID: [id number]. NOTE: For mammograms, a report in lay terms will be sent to the patient. Approximately 15% of breast malignancies will not be visualized mammographically. In the management of a palpable breast mass, a negative mammogram must not discourage biopsy of a clinically suspicious lesion. Electronically Signed By: Palak messer/:07/15/2019 09:24:21 copy to: Jose Leyva ACR BI-RADS Category 0: Incomplete [id number]
== END ==
PROVIDERS: PCP Internal Medicine; Visit Provider Internal Medicine
DX: R92.8 Other abnormal and inconclusive findings on diagnostic imaging of breast (principal)
CPT/HCPCS: 76642; 77065; G0279

== ENCOUNTER → 2020-10-19 16:07 | Outpatient (CLI) | payer OTHER, SELFPAY ==
--- NOTE | 2020-10-19 16:09 | DI.MG.S_ITS ---
BILATERAL DIGITAL SCREENING MAMMOGRAM 3D/2D WITH CAD: 10/19/2020 CLINICAL: Routine screening. Family history of breast cancer. Comparison is made to exams dated: 07/15/2019 mammogram, 06/21/2019 mammogram, 01/10/2017 mammogram, and 07/30/2015 mammogram - [facility]. The tissue of both breasts is extremely dense, which lowers the sensitivity of mammography. Current study was also evaluated with a Computer Aided Detection (CAD) system. No significant masses, calcifications, or other findings are seen in either breast. There has been no significant interval change. IMPRESSION: NEGATIVE There is no mammographic evidence of malignancy. A 1 year screening mammogram is recommended. This exam was interpreted at Station ID: [id number]. NOTE: For mammograms, a report in lay terms will be sent to the patient. Approximately 15% of breast malignancies will not be visualized mammographically. In the management of a palpable breast mass, a negative mammogram must not discourage biopsy of a clinically suspicious lesion. Electronically Signed By: Compa deleon/miguel angel:10/19/2020 18:08:28 copy to: Jose Leyva letter sent: Normal Exam ACR BI-RADS Category 1: Negative [id number]
== END ==
PROVIDERS: PCP Internal Medicine; Referring Provider Internal Medicine; Visit Provider Internal Medicine
DX: Z12.31 Encounter for screening mammogram for malignant neoplasm of breast (principal); Z80.3 Family history of malignant neoplasm of breast
CPT/HCPCS: 77063; 77067

== ENCOUNTER → 2020-11-17 18:31 | Outpatient (ROUT) | payer OTHER, SELFPAY ==
[2020-11-17 19:55] LABS: Cholesterol 163 mg/dL (140-199); Glucose 92 mg/dL (80-110); HDL Cholesterol 54 mg/dL (40-60); LDL Cholesterol Calculated 89 mg/dL (<100); Triglycerides 100 mg/dL (35-150)
== END ==
PROVIDERS: PCP Internal Medicine; Visit Provider Internal Medicine
DX: Z00.00 Encounter for general adult medical examination without abnormal findings (principal)
CPT/HCPCS: 80061; 82947

== ENCOUNTER → 2023-01-25 11:15 | Outpatient (CLI) | payer OTHER, SELFPAY ==
--- NOTE | 2023-01-25 | DI.MG.S_ITS ---
BILATERAL DIGITAL SCREENING MAMMOGRAM 3D/2D WITH CAD: 01/25/2023 CLINICAL: Routine screening. Comparison is made to exams dated: 10/19/2020 mammogram, 06/21/2019 mammogram, and 01/10/2017 mammogram - [facility]. Both breasts are extremely dense, which lowers the sensitivity of mammography (category d />75% glandular tissue). Current study was also evaluated with a Computer Aided Detection (CAD) system. No significant masses, calcifications, or other findings are seen in either breast. There has been no significant interval change. IMPRESSION: NEGATIVE There is no mammographic evidence of malignancy. A 1 year screening mammogram is recommended. Based on the Tyrer Cuzick model (a risk assessment model) the patient's lifetime risk is 16.3% and her 10 year risk is 8.4%. According to the ACR, ACS, and NCCN guidelines, an annual breast MRI exam along with mammogram is recommended if the patient's lifetime risk is 20% or greater. This exam was interpreted at Station ID: [id number]. NOTE: For mammograms, a report in lay terms will be sent to the patient. Approximately 15% of breast malignancies will not be visualized mammographically. In the management of a palpable breast mass, a negative mammogram must not discourage biopsy of a clinically suspicious lesion. Electronically Signed By: Varinder hoffman/miguel angel:01/25/2023 12:23:46 letter sent: Normal Exam ACR BI-RADS Category 1: Negative 3341F
--- NOTE | 2023-01-25 | DI.RAD.S_ITS ---
PROCEDURE: XR HIP W PEL IF DONE LT 2V INDICATIONS: LEFT HIP PAIN TECHNIQUE: AP pelvis with lateral view of the left hip. COMPARISON: None. FINDINGS: Bones: No acute fractures or dislocations. Pelvic ring appears intact. No suspicious bony lesions. Mild degenerative spurring of the lateral acetabula bilaterally. Degenerative changes are seen in the included lumbar spine. Soft tissues: The visualized bowel gas pattern is normal. No suspicious soft tissue calcifications. IMPRESSION: Mild bilateral hip osteoarthrosis. Approved by: Antonio Mcmanus M.D. on 01/25/2023 at 14:12
--- NOTE | 2023-01-25 11:30 | DI.DEXA.S_ITS ---
Bone Density Report Name: KE KELLY Age: 67 Sex: Female Ethnicity: White Date of : 1955 Indication: postmenopausal; screening for osteoporosis; Referring Provider: MALVIN CALLES Study: Bone densitometry was performed. Exam Date: January 25, 2023 Accession number: [id number] Bone Density: Region BMD T-score Z-score Classification AP Spine(L1, L3, L4) 1.096 0.4 2.3 Normal Femoral Neck (Left) 0.797 -0.5 1.1 Normal Total Hip (Left) 0.854 -0.7 0.6 Normal Femoral Neck (Right) 0.776 -0.7 0.9 Normal Total Hip (Right) 0.890 -0.4 0.9 Normal Total Hip Mean 0.872 -0.6 0.8 Normal World Health Organization criteria for BMD impression classify patients as: Normal (T-score at or above -1.0), Osteopenia (T-score between -1.0 and -2.5), or Osteoporosis (T-score at or below -2.5). 10-year Fracture Risk: FRAX not reported because: All T-scores for Spine Total, Hip Total, Femoral Neck at or above -1.0 Previous Exams: -- Region Exam Age BMD T-score BMD Change BMD Change Date g/cm2 vs Baseline vs Previous -- AP Spine (L1,L3-L4) 01/25/2023 67 1.096 0.4 0.033 (3.1%)# 0.033 (3.1%)# 09/06/2017 62 1.063 0.1 Total Hip(Left) 01/25/2023 67 0.854 -0.7 -0.010 (-1.1%)# -0.010 (-1.1%)# 09/06/2017 62 0.863 -0.6 Total Hip(Right) 01/25/2023 67 0.890 -0.4 0.009 (1.0%)# 0.009 (1.0%)# 09/06/2017 62 0.882 -0.5 -- *Denotes significance at 95% confidence level, LSC for AP Spine = 0.022 g/cm2, LSC for Total Hip = 0.027 g/cm2 # Denotes dissimilar scan types or analysis methods Impression: The patient has normal bone mass. No significant bone loss was observed. Discussion: BONE DENSITY IS ABOVE THE MINIMUM DESIRABLE LEVEL AT ALL SKELETAL SITES TESTED. This patient?s bone mineral density is above the minimum desirable level (T-score -1.0 or better) at all sites measured. The patient should follow a healthful lifestyle (good nutrition with adequate calcium and vitamin D, and appropriate weight-bearing exercise). Follow-Up: Consider repeating this study in 5 years or sooner if there is some new clinical indication. Reported by: JAC OBX MD on 01/25/2023 11:51:00 AM.
== END ==
PROVIDERS: PCP Student in an Organized Health Care Education/Training Program; Referring Provider Student in an Organized Health Care Education/Training Program; Visit Provider Student in an Organized Health Care Education/Training Program
DX: Z12.31 Encounter for screening mammogram for malignant neoplasm of breast; M25.552 Pain in left hip; M16.0 Bilateral primary osteoarthritis of hip; Z13.820 Encounter for screening for osteoporosis; Z78.0 Asymptomatic menopausal state
CPT/HCPCS: 73502; 77063; 77067; 77080

== ENCOUNTER → 2024-02-29 12:50 | Outpatient (CLI) | payer MEDICARE, SELFPAY ==
--- NOTE | 2024-02-29 12:57 | DI.MG.S_ITS ---
BILATERAL DIGITAL SCREENING MAMMOGRAM 3D/2D WITH CAD: 02/29/2024 CLINICAL: Routine screening. Comparison is made to exams dated: 01/25/2023 mammogram, 10/19/2020 mammogram, and 06/21/2019 mammogram - [facility]. Both breasts are extremely dense, which lowers the sensitivity of mammography (category d />75% glandular tissue). Current study was also evaluated with a Computer Aided Detection (CAD) system. No significant masses, calcifications, or other findings are seen in either breast. There has been no significant interval change. IMPRESSION: NEGATIVE There is no mammographic evidence of malignancy. A 1 year screening mammogram is recommended. Based on the Tyrer Cuzick model (a risk assessment model) the patient's lifetime risk is 15.6% and her 10 year risk is 8.4%. According to the ACR, ACS, and NCCN guidelines, an annual breast MRI exam along with mammogram is recommended if the patient's lifetime risk is 20% or greater. This exam was interpreted at Station ID: [id number]. NOTE: For mammograms, a report in lay terms will be sent to the patient. Approximately 15% of breast malignancies will not be visualized mammographically. In the management of a palpable breast mass, a negative mammogram must not discourage biopsy of a clinically suspicious lesion. Electronically Signed By: Compa deleon/miguel angel:02/29/2024 22:19:02 letter sent: Normal Exam ACR BI-RADS Category 1: Negative 3341F
== END ==
PROVIDERS: PCP Student in an Organized Health Care Education/Training Program; Referring Provider Student in an Organized Health Care Education/Training Program; Visit Provider Student in an Organized Health Care Education/Training Program
DX: Z12.31 Encounter for screening mammogram for malignant neoplasm of breast (principal); R92.343 Mammographic extreme density, bilateral breasts
CPT/HCPCS: 77063; 77067

== ENCOUNTER → 2025-05-20 12:50 | Outpatient (CLI) | payer MEDICARE, SELFPAY ==
--- NOTE | 2025-05-20 12:51 | DI.MG.S_ITS ---
MM screening mammo BI: 05/20/2025. BI-RADS: 1 CLINICAL: 69-year old female for bilateral screening mammogram. Tyrer-Cuzick lifetime risk of 7.5%. No personal or first-degree family history of breast cancer. PRIOR EXAMS: 02/29/2024, 01/25/2023, 10/19/2020, 07/15/2019, 06/21/2019, 01/10/2017, 07/30/2015. MAMMOGRAPHY TECHNIQUE: 2D and 3D (tomosynthesis) digital mammographic views obtained, with additional images as needed for full coverage. Current study was also evaluated with a Computer Aided Detection (CAD) system. DENSITY C. The breasts are heterogeneously dense, which may obscure small masses. MAMMOGRAPHY FINDINGS Bilateral: No suspicious mass, asymmetry, microcalcification, or other abnormality seen. IMPRESSION: * No evidence of malignancy. RECOMMENDATIONS Bilateral * Annual screening mammography. OVERALL ASSESSMENT CATEGORY BI-RADS-1: Negative. The [employer] recommends annual screening mammography beginning at age 40 for women with average risk of breast cancer. ELECTRONICALLY SIGNED: Sarah Daily M.D. on 05/20/2025 at 04:38:58 PM PT Interpreting Station ID: [id number]
== END ==
PROVIDERS: PCP Student in an Organized Health Care Education/Training Program; Referring Provider Student in an Organized Health Care Education/Training Program; Visit Provider Student in an Organized Health Care Education/Training Program
DX: Z12.31 Encounter for screening mammogram for malignant neoplasm of breast (principal); R92.333 Mammographic heterogeneous density, bilateral breasts
CPT/HCPCS: 77063; 77067

== ENCOUNTER 2025-07-11 21:51 | Emergency (ER) | payer MEDICARE, SELFPAY ==
[2025-07-11 21:53] VITALS: BP 138/87; PULSE 94; RESP 16; TEMP 36.6; O2SAT 97; BMI 20.5
--- NOTE | 2025-07-11 21:58 | DI.CT.S_ITS ---
PROCEDURE: CT HEAD/BRAIN WO CON INDICATIONS: fall with head lac and now dizzy TECHNIQUE: Noncontrast 4.5 mm thick angled axial sections acquired from the foramen magnum to the vertex, with coronal and sagittal reformats. For radiation dose reduction, the following was used: automated exposure control, adjustment of mA and/or kV according to patient size. COMPARISON: [facility], CT, CT HEAD/BRAIN WO CON, 12/23/2018, 17:02. FINDINGS: Image quality: Diagnostic. CSF spaces: Basal cisterns are patent. No extra-axial fluid collections. The ventricles are symmetric in size and shape. Brain: No intracranial bleeds or mass effect. There is cerebral volume loss, with resultant ventricular and sulcal prominence. There are periventricular and deep white matter chronic small vessel ischemic changes. There is intracranial internal carotid artery atherosclerosis. Skull and face: Calvarium and visualized facial bones appear intact, without suspicious lesions. Biparietal scalp hematoma. Sinuses: Visualized sinuses and mastoids are clear. IMPRESSION: No acute intracranial pathology. Left parietal scalp hematoma. No underlying calvarial fracture. Approved by: Sandy Caro M.D.,Ph.D. on 07/11/2025 at 22:55
--- NOTE | 2025-07-11 21:58 | DI.CT.S_ITS ---
PROCEDURE: CT CERVICAL SPINE WO CON INDICATIONS: fall with head lac and had been drinking TECHNIQUE: Noncontrast 3 mm thick sections acquired from the skull base to the T4 level. Sagittal and coronal reformats were then constructed. For radiation dose reduction, the following was used: automated exposure control, adjustment of mA and/or kV according to patient size. COMPARISON: [facility], CT, CT CERVICAL SPINE WO CON, 12/23/2018, 17:02. FINDINGS: Image quality: Diagnostic Bones: No fractures or dislocations. Visualized superior ribs are intact. Soft tissues: Prevertebral soft tissues are normal in thickness. No paravertebral hematomas. No apical pneumothoraces. IMPRESSION: No displaced fracture or traumatic subluxation. Approved by: Sandy Caro M.D.,Ph.D. on 07/11/2025 at 22:57
[2025-07-11] MEDS: ONDANSETRON 4 MG ODT SL (22:03)
--- NOTE | 2025-07-11 23:30 | PC.NURSE ---
Pt's wound irrigated with normal saline
--- NOTE | 2025-07-12 00:12 | ED.HEATRA ---
HPI - Head Injury General Chief complaint: Head Injury Stated complaint: fall Time Seen by Provider: 07/12/25 00:12 Source: EMS Mode of arrival: EMS History of Present Illness HPI Narrative: Patient is a 69-year-old female no pertinent past medical history comes into the ED from home via EMS for evaluation of head strike, she states that she was lifting a kit and fell backwards striking the back of her head on cement, she states she did have a few drinks prior to this, she states that she is not on any blood thinners does feel a little nausea and dizzy but otherwise does not have any other complaints at this time, she denies any other injuries was able to stand bear weight ambulate immediately after. Related Data Home Medications ?Medication ?Instructions ?Recorded ?Confirmed CA PANTOTHENATE/FOLIC ACID/VIT 1 tab PO QDAY ##0 01/17/13 (MULTIVITAMIN) Calcium Carbonate/Vitamin D 1 tab PO BID ##0 01/17/13 (#YOLANDA-D) Fish Oil 1,000 mg PO QDAY ##0 01/17/13 Glucosamine Sulfate (GLUCOSAMINE-) 750 mg PO BID ##0 01/17/13 Previous Rx's ?Medication ?Instructions ?Recorded estradiol-norethindrone acet 1 See Rx Instructions .Route 01/01/21 mg-0.5 mg tablet .COMPLEX #84 tabs Allergies Allergy/AdvReac Type Severity Reaction Status Date / Time ibuprofen (From DAYQUIL Allergy Unknown Verified 07/11/25 21:52 SINUS PRESSURE/PAIN) penicillin V (PENICILLIN V) Allergy Unknown Verified 07/11/25 21:52 pseudoephedrine (From Allergy Unknown Verified 07/11/25 21:52 DAYQUIL SINUS PRESSURE/PAIN) Review of Systems Review of Systems Narrative: General: Denies fever, chills, weight loss HEENT: Positive fall/head strike headache,Denies eye drainage, eye irritation, head trauma, sore throat, voice change Cardiovascular: Denies any chest pain, palpitations, tachycardia Respiratory: Denies any shortness of breath, cough, wheeze, stridor GI/: Denies any abdominal pain, nausea, vomiting, diarrhea, bright red blood per rectum, melanotic stools, urinary frequency, urinary retention, dysuria, hematuria MSK: Denies any joint pain, muscle pains, swelling Skin: Denies any rashes, lesions, discoloration Neuro: Denies any headache, lightheadedness, dizziness, fainting, weakness Psych: Denies SI/HI Patient History Surgical History Status post tonsillectomy and adenoidectomy Social History Smoking Status: Never smoker Smoking Status: Never smoker Exam Narrative Exam Narrative: General: Cooperative, well-developed, not in acute distress HEENT: Patient with a 1 cm laceration noted to the back of the scalp, no active bleeding no foreign body PERRLA, normal sclera, eyelids normal Neck: Active full range of motion, atraumatic no tenderness to palpation of the midline spine Chest: Normal to inspection, negative crepitus, no overlying erythema ecchymosis Respiratory: Normal respiratory effort, not in acute respiratory distress, clear to auscultation bilaterally negative cough, wheeze, tachypnea, rhonchi, rales Cardiology: Regular rate rhythm negative gallop, murmur, rubs GI/: No tenderness to palpation, soft, non rigid, normal to inspection, exam deferred MSK: Full active range of motion in all 4 extremities, atraumatic, no tenderness to palpation of any bony prominences Skin: No rashes or lesions noted Neuro: Patient moving all 4 extremities spontaneously neurovascularly intact bilateral upper and lower extremities Alert awake oriented x3, moves all 4 extremities spontaneously, cranial nerves intact, able to answer all questions appropriately follows commands appropriately Psych: Cooperative, negative suicidal or homicidal ideations Initial Vital Signs Initial Vital Signs: Vital Signs Temperature 98 F 07/11/25 21:53 Pulse Rate 94 H 07/11/25 21:53 Respiratory Rate 16 07/11/25 21:53 Blood Pressure 138/87 07/11/25 21:53 Pulse Oximetry 97 07/11/25 21:53 Oxygen Delivery Method Room Air 07/11/25 21:53 Procedures Laceration Repair Laceration 1: Time of procedure: 00:52 Site: scalp Size (cm): 2 Description: linear Depth: simple, single layer Local Anesthetic: lidocaine 1% and with epi Amount of anesthesia used (mL): 3 Pre-repair: wound explored, irrigated extensively and deep structures intact Skin layer closed with: lucretia (3) Course Orders Ordered: ED Orders 07/11/25 21:58 CT cervical spine wo con Stat CT head/brain wo con Stat Discontinued Medications Ondansetron HCl (Ondansetron 4 Mg Odt) 4 mg SL NOW ONE Stop: 07/11/25 22:00 Last Admin: 07/11/25 22:03 Dose: 4 mg Documented By: GUANAKO Vital Signs Vital signs: Vital Signs - 8 hr 07/11/25 21:53 Temperature 98 F Pulse Rate 94 H Respiratory Rate 16 Blood Pressure 138/87 Pulse Oximetry 97 Oxygen Delivery Method Room Air MDM - Head Injury MDM Narrative Medical decision making narrative: 69-year-old female no pertinent past medical history is not on any blood thinners presents from home via EMS for evaluation of head strike, she states that she was having some drinks lifted up a kid and fell backwards hitting her head no LOC not on any blood thinners she was able to stand bear weight ambulate immediately after, tetanus was updated here in the emergency department, CT scan of the head and neck without any acute traumatic injury, patient had laceration repair of her scalp place 3 lucretia, she was given strict return precautions verbalized understanding agrees to being discharged home with outpatient follow up Discharge Plan Departure Patient Disposition: Home Clinical Impression: Closed head injury, Laceration of scalp Instructions: DI for Laceration Repair -- [place], DI for Closed Head Injury Activity Restrictions/Additional Instructions: You have 3 lucretia that should be removed in a proximally 1 week Please read the discharge instructions sheet carefully and bring all papers to all doctor follow-up visits, as it may contain information that your doctor may want to see. Disease processes change and evolve, if your symptoms worsen or if you develop any new symptoms that are concerning to you please return for evaluation. Your evaluation today does not show any evidence of any life-threatening/serious illnesses requiring admission to the hospital or surgery. Please follow-up with your doctor for re-evaluation in approximately 1 day. Seek immediate medical attention for any worrisome symptoms. *If you do not have a primary care provider please contact the [facility] Resource line at [phone]. They will ask some questions about your medical history and help get you set up with a doctor in the community. Prescriptions: No Action Fish Oil 1,000 mg PO QDAY Qty: 0 CA PANTOTHENATE/FOLIC ACID/VIT (MULTIVITAMIN) 1 tab PO QDAY Qty: 0 Calcium Carbonate/Vitamin D (#YOLANDA-D) 1 tab PO BID Qty: 0 Glucosamine Sulfate (GLUCOSAMINE-) 750 mg PO BID Qty: 0 estradiol-norethindrone acet 1-0.5 mg tablet See Rx Instructions .ROUTE .COMPLEX Qty: 84 1RF Dose Instruction: TAKE 1 TABLET BY MOUTH DAILY Rx Instructions: TAKE 1 TABLET BY MOUTH DAILY Referrals: Anabel Mooney, PAEmmanuelC [Primary Care Provider, Medical] Stand Alone Forms: Patient Portal/API
[2025-07-12] MEDS: ONDANSETRON 4 MG ODT SL (00:28)
[2025-07-12] MEDS: TET,DIPH,PERTUSS(ACELL),VAC/PF 0.5 ML SYRINGE IM (00:28)
[2025-07-12] MEDS: LIDOCAINE 2% W/EPI INJ 10 ML VIAL INJ (00:30)
[2025-07-12] MEDS: ONDANSETRON 4 MG ODT PREPACK 1 BOTTLE MISC (01:04)
[2025-07-12 01:21] VITALS: BP 118/66; PULSE 102; RESP 18; TEMP 36.7; O2SAT 97
== END 2025-07-12 01:24 | disposition home or self-care (01) ==
PROVIDERS: Emergency Provider Student in an Organized Health Care Education/Training Program; PCP Student in an Organized Health Care Education/Training Program
DX: S01.01XA Laceration without foreign body of scalp, initial encounter (principal); W18.30XA Fall on same level, unspecified, initial encounter; Z23 Encounter for immunization
CPT/HCPCS: 12001; 70450; 72125; 90471; 99283; 99284; 90715